=== PATIENT | male | born 1965 | race Caucasian/White ===

== ENCOUNTER → 2018-03-29 | Outpatient (CLI) | payer BC | END | disposition home or self-care (01) | LOC: PCVCIMAG 11:31 | DX: I73.9 Peripheral vascular disease, unspecified (principal); I77.1 Stricture of artery; R00.2 Palpitations; R06.09 Other forms of dyspnea; I10 Essential (primary) hypertension; R07.89 Other chest pain | CPT/HCPCS: 93325; 93351; 93978 ==

== ENCOUNTER → 2018-04-04 | Outpatient (CLI) | payer BC ==
[~2018-04-04] MED LIST: CLOPIDOGREL BISULFATE 75 MG TABLET ONE; DIAZEPAM 10 MG TABLET. ONE; HEPARIN SODIUM 5,000 UNIT/ML VIAL for PCVC. ONE; HEPARIN for ARTERIAL LINE 1,500 ML ONE; IODIXANOL 270 MG/ML 100 ML VIAL. ONE; IOHEXOL 350 MG/ML 100 ML VIAL. ONE; IOHEXOL 350 MG/ML 50 ML VIAL. ONE; IV NORMAL SALINE 1000ML BAG 1,000 ML ONE; LIDOCAINE 1%/EPI 1:100,000 20 ML VIAL. ONE; MIDAZOLAM HCL/PF 2 MG/2 ML VIAL. ONE; WATER FOR INJECTION,STERILE 10 ML IJ ONE; ceFAZolin SODIUM 1 GM VIAL ONE; fentaNYL PF VIAL 100 MCG/2 ML VIAL ONE; hydrALAZINE 20 MG/ML VIAL. ONE
--- NOTE | 2018-04-04 11:31 | PCVCINTER ---
EXAM: 1. AORTOGRAM AND BILATERAL LOWER EXTREMITY RUNOFF ANGIOGRAM 2. BILATERAL RENAL ANGIOGRAPHY 3. DISTAL AORTIC STENT PLACEMENT. 4. RIGHT COMMON ILIAC ARTERY STENT PLACEMENT. 5. LEFT COMMON ILIAC ARTERY STENT PLACEMENT. INDICATION: Peripheral arterial disease. Coronary artery disease. Lower extremity claudication and fatigue. Hypertension. Renal atherosclerosis. No prior catheter based angiographic study is available. A full diagnostic angiogram study is performed today and the decision to intervene is based on this diagnostic study. PROCEDURE: Procedure and risks of angiography intervention is appropriate including limb loss stroke and were discussed with the patient's family and consent obtained. The patient's left groin was prepped in the normal sterile fashion. IV conscious sedation was used throughout procedure with appropriate monitoring from 9:00 AM through 10:30 AM. Ultrasound was used to interrogate the left groin and showed the left common femoral artery to be patent. A permanent spot film was obtained. Under ultrasound guidance access into the left common femoral artery was obtained and a 5 Montenegrin sheath was placed. Through this a 5 Montenegrin flush catheter was placed into the abdominal aorta at the level of the renal arteries and AP aortogram was performed. Catheter was positioned at the aortic bifurcation and both oblique views of the pelvis were obtained. Catheter was positioned into the left external iliac artery and left leg runoff angiography was performed. Catheter was exchanged for a visceral catheter was placed into the right renal arteries and right renal angiograms obtained. Catheter was placed into the the left renal arteries and left renal angiograms were obtained. Under ultrasound guidance access into the right common femoral artery was obtained and a 6 Montenegrin sheath was placed. Catheter was advanced to the level of the right external iliac artery and right leg runoff angiography was obtained. Patient was given 3500 units of heparin. Stent placement across the areas of high-grade stenosis in the distal abdominal aorta was carried out with a Smart stents placed in a kissing-type fashion with subsequent dilatation to 7 and 8 mm diameter simultaneously. Stent placement across the areas of high-grade stenosis in the right common iliac artery was carried out with a 10 x 60 Smart control stent with subsequent dilatation to 8 mm. Stent placement across the areas of high-grade stenosis in the left common iliac artery was carried out with a 10 x 40 Smart control stent with subsequent dilatation to 7.0 mm. Catheters and wires removed. Dr. Diehl joined the procedure he performed coronary angiography. Please see his dictation for full details. Sheath was removed and hemostasis obtained using the FISH device. No immediate complications. FINDINGS: Aortogram: There is one right and one left renal artery. Moderate plaque distal aorta causing moderate stenosis. Pelvis: Moderate stenosis at the origin of the right common iliac artery. Mild/moderate stenosis origin left common iliac artery. Both internal iliac arteries are patent. Both external iliac arteries are patent. The right and left common femoral and profunda femoral arteries are patent. Right renal artery: Minimal plaque proximal vessel does not cause significant stenosis. Left renal artery: Minimal plaque proximal vessel does not cause significant stenosis. Right leg: Superficial femoral artery and popliteal artery are patent. Three-vessel runoff into the foot. Left leg: Superficial femoral artery and popliteal artery are patent. Three-vessel runoff into the foot. Distal aorta: Following procedure as above vessel is patent. Right common iliac artery: Following procedure as above vessel shows good patency. Left common iliac artery: Following procedure as above vessel shows good patency. IMPRESSION: Moderate distal abdominal aortic stenosis with moderate stenosis involving the proximal right and left common iliac arteries were treated as above with good patency restored. LOC:[id number]
--- NOTE | 2018-04-04 17:01 | PCVCINTER ---
APPROVED REPORT Study performed: 04/04/2018 09:33:01 Patient Details Patient Status: Out-Patient Room #: 2 The patient is a 52 year-old Male Event Personnel Eh Diehl MD, , Jake Garcia RT(R)(), Cruz Flores RT(R), Yesenia Woods RN Risk Factors Arterial HypertensionDysplipidemia (Type: 1), Last Creatanine 1Tobacco History (Current/Recent(w/in 1 year)) Procedure Narrative A 6 sheath was inserted into the right femoral artery. Coronary angiography was performed using coronary diagnostic catheters. The right coronary system was accessed and visualized with a JR4 catheter. The left coronary system was accessed and visualized with a JL4 catheter. The left ventricle was accessed and visualized with a Straight Pigtail catheter. Left ventriculogram was performed in CHAIDEZ projection. Closure device was deployed with a 6 Fr FISH. Hemostasis was obtained with manual pressure following sheath removal without any complications. The patient tolerated the procedure well and there were no complications associated with the procedure. There was no hematoma. Hemodynamics The aortic pressure is 146/34 mmHg with a mean of 84 mmHg. The left ventricular pressure is 115/5 mmHg with a mean of 27 mmHg. Conclusion #1 normal left ventricular size and systolic function EF 60% #2 left main moderate size with mild calcification giving rise to LAD and circumflex #3 LAD proximal calcification mid vessel lesion eccentric of 50-60% with preserved distal vessel to the apex. #4 circumflex OM nondominant moderate size with an eccentric 40-50% proximal lesion more focal #5 dominant right coronary artery also diffusely disease with proximal calcification mid vessel 50-60% long with diffuse distal disease Recommendations and plan: Continue aggressive risk factor modification. Follow post peripheral stent protocol with bilateral iliac stents placed per Dr. So. Aggressive statin therapy blood pressure control. Follow-up will be arranged
== END | disposition home or self-care (01) ==
LOC: PCVCINTER 15:06
PROVIDERS: ATTEND Internal Medicine Cardiovascular Disease
DX: I25.10 Atherosclerotic heart disease of native coronary artery without angina pectoris (principal); I70.213 Atherosclerosis of native arteries of extremities with intermittent claudication, bilateral legs; I70.1 Atherosclerosis of renal artery; I10 Essential (primary) hypertension; I70.0 Atherosclerosis of aorta
CPT/HCPCS: 36252; 37221; 37236; 75716; 76937; 93458; 99152; 99153; C1725; C1751; C1760; C1769; C1876; C1894; J0690; J1644; J2250; J3010; J3490; J7030; Q9967; J0360

== ENCOUNTER → 2018-04-10 | Outpatient (CLI) | payer BC ==
--- NOTE | 2018-04-10 11:30 | PCVCIMAG ---
EXAM: DUPLEX ULTRASOUND OF THE RIGHT GROIN INDICATION: Groin swelling and pain. FINDINGS: No pseudoaneurysm is present. The common femoral artery and vein are patent. No arteriovenous fistula is seen. IMPRESSION: Study is negative for pseudoaneurysm. LOC:[id number]
== END | disposition home or self-care (01) ==
LOC: PCVCIMAG 13:00
PROVIDERS: ATTEND Nuclear Medicine Nuclear Cardiology
DX: R10.31 Right lower quadrant pain (principal)
CPT/HCPCS: 93926

== ENCOUNTER → 2018-05-09 | Outpatient (CLI) | payer BC ==
--- NOTE | 2018-05-09 08:44 | PCVCIMAG ---
EXAM: AORTOILIAC DUPLEX INDICATION: Peripheral arterial disease FINDINGS: AORTA: Suprarenal aorta measures maximum diameter of 2.4 cm. There is not a fusiform infrarenal aortic aneurysm. The infrarenal aorta measures maximum diameter of 1.8 cm. No aortic stenosis. RIGHT COMMON ILIAC ARTERY: Maximum diameter is 1.1 cm. No significant stenosis. RIGHT EXTERNAL ILIAC ARTERY: No significant stenosis. LEFT COMMON ILIAC ARTERY: Maximum diameter is 1.1 cm. 70-80% stenosis proximal vessel. LEFT EXTERNAL ILIAC ARTERY: No significant stenosis. IMPRESSION: No abdominal aortic aneurysm. Previous right common iliac artery stent maintaining good patency. 70-80% stenosis proximal left common iliac artery. LOC:[id number]
== END | disposition home or self-care (01) ==
LOC: PCVCIMAG 08:21
PROVIDERS: ATTEND Nuclear Medicine Nuclear Cardiology
DX: I73.9 Peripheral vascular disease, unspecified (principal); M25.559 Pain in unspecified hip; F17.200 Nicotine dependence, unspecified, uncomplicated; I25.10 Atherosclerotic heart disease of native coronary artery without angina pectoris; I10 Essential (primary) hypertension; E78.1 Pure hyperglyceridemia; I70.8 Atherosclerosis of other arteries
CPT/HCPCS: 93978

== ENCOUNTER → 2018-05-16 | Outpatient (CLI) | payer BC ==
[~2018-05-16] MED LIST changes: -CLOPIDOGREL BISULFATE 75 MG TABLET ONE; -HEPARIN for ARTERIAL LINE 1,500 ML ONE; -IOHEXOL 350 MG/ML 100 ML VIAL. ONE; -IOHEXOL 350 MG/ML 50 ML VIAL. ONE; -hydrALAZINE 20 MG/ML VIAL. ONE
--- NOTE | 2018-05-16 12:57 | PCVCINTER ---
EXAM: 1. AORTOGRAM AND BILATERAL LOWER EXTREMITY RUNOFF ANGIOGRAM 2. BILATERAL RENAL ANGIOGRAPHY 3. DISTAL AORTIC STENT GRAFT PLACEMENT. 4. RIGHT COMMON ILIAC ARTERY STENT GRAFT PLACEMENT. 5. LEFT COMMON ILIAC ARTERY STENT GRAFT PLACEMENT. INDICATION: Peripheral arterial disease. Coronary artery disease. Nonhealing ulcer right lower extremity. Hypertension. Renal atherosclerosis. No prior catheter based angiographic study is available. A full diagnostic angiogram study is performed today and the decision to intervene is based on this diagnostic study. PROCEDURE: Procedure and risks of angiography intervention is appropriate including limb loss stroke and were discussed with the patient's family and consent obtained. The patient's left groin was prepped in the normal sterile fashion. IV conscious sedation was used throughout procedure with appropriate monitoring from 8:45 AM through 10:00 AM. Ultrasound was used to interrogate the left groin and showed the left common femoral artery to be patent. A permanent spot film was obtained. Under ultrasound guidance access into the left common femoral artery was obtained and a 5 English sheath was placed. Through this a 5 English flush catheter was placed into the abdominal aorta at the level of the renal arteries and AP aortogram was performed. Catheter was positioned at the aortic bifurcation and both oblique views of the pelvis were obtained. Catheter was positioned into the left external iliac artery and left leg runoff angiography was performed. Catheter was exchanged for a visceral catheter was placed into the right renal arteries and right renal angiograms obtained. Catheter was placed into the the left renal arteries and left renal angiograms were obtained. The right groin have been prepped and draped in the normal sterile fashion. Access under ultrasound guidance the right common femoral artery was obtained and a 7 English sheath was placed. Through this a catheter was advanced to the level of the right external iliac artery and right leg runoff angiography was obtained. Patient was given 4000 units of heparin. Stent placement across the areas of high-grade stenosis in the distal abdominal aorta was carried out with a VBX stent grafts placed in a kissing-type fashion with subsequent dilatation to 8.0 mm. Stent placement across the areas of high-grade stenosis in the right common iliac artery was carried out with a 8 x 59 VBX stent graft with subsequent dilatation to 8.0 mm. Stent placement across the areas of high-grade stenosis in the left common iliac artery was carried out with a 8 x 59 VBX stent graft with subsequent dilatation to 8.0 mm. Follow-up angiogram was performed. Catheters and wires removed. Sheath was removed and hemostasis obtained using the FISH device. No immediate complications. FINDINGS: Aortogram: There is one right and one left renal artery. Moderate plaque on the left distal aspect of the aorta with interval moderate restenosis of the distal aortic stent. Pelvis: Previous right common iliac artery maintaining satisfactory patency. Eccentric plaque origin left common iliac artery causing significant restenosis within prior stent. Both internal iliac arteries are patent. The right and left external iliac arteries are patent. The right and left common femoral and profunda femoral arteries are patent. Right renal artery: Mild plaque proximal vessel does not cause significant stenosis. Left renal artery: Minimal plaque proximal vessel does not cause significant stenosis. Right leg: Superficial femoral artery and popliteal arteries show good patency. Three-vessel runoff into the foot. Left leg: The superficial femoral artery and popliteal arteries show good patency. Three-vessel runoff into the foot. Distal aorta: Following procedure as above good position of the kissing stent graft in the distal aorta maintaining good patency. Right common iliac artery: Following procedure as above good position of the stent graft with good patency achieved. Left common iliac artery: Following procedure as above good position of the stent graft with good patency achieved. IMPRESSION: Interval early restenosis distal aorta along its left lateral aspect and high-grade stenosis within prior stent proximal left common iliac artery were treated as above with good patency restored. LOC:[id number]
== END | disposition home or self-care (01) ==
LOC: PCVCINTER 12:56
PROVIDERS: ATTEND Nuclear Medicine Nuclear Cardiology
DX: I70.238 Atherosclerosis of native arteries of right leg with ulceration of other part of lower leg (principal); L97.818 Non-pressure chronic ulcer of other part of right lower leg with other specified severity; I70.1 Atherosclerosis of renal artery; I70.292 Other atherosclerosis of native arteries of extremities, left leg; I10 Essential (primary) hypertension; I25.10 Atherosclerotic heart disease of native coronary artery without angina pectoris; I70.0 Atherosclerosis of aorta
CPT/HCPCS: 36252; 37221; 37236; 75716; 76937; 99152; 99153; C1713; C1725; C1751; C1769; C1874; C1894; J0690; J1644; J2250; J3010; J3490; J7030; Q9966

== ENCOUNTER → 2018-07-27 | Outpatient (CLI) | payer BC ==
--- NOTE | 2018-07-27 14:56 | PCVCIMAG ---
APPROVED REPORT Doppler Spectral Velocity Analysis PSV / EDVPSV / EDV ECA (R) 53 / 14 cm/sECA (L) 53 / 13 cm/s dICA (R) 60 / 27 cm/sdICA (L) 64 / 27 cm/s Eli (R) 50 / 22 cm/smICA (L) 56 / 24 cm/s pICA (R) 28 / 9 cm/spICA (L) 53 / 13 cm/s Bulb (R) 55 / 17 cm/sBulb (L) 53 / 17 cm/s dCCA (R) 78 / 18 cm/sdCCA (L) 71 / 24 cm/s mCCA (R) 91 / 21 cm/smCCA (L) 67 / 21 cm/s Vert (R) 39 / 16 cm/sVert (L) 39 / 12 cm/s ICA/CCA 0.77ICA/CCA 0.90 Findings The right carotid bulb has mild calcified plaque. The right proximal internal carotid artery shows no significant stenosis. The right common carotid artery shows no significant stenosis. The right external carotid artery shows no significant stenosis. The left carotid bulb has mild plaque. The left proximal internal carotid artery shows no significant stenosis. The left common carotid artery shows no significant stenosis. The left external carotid artery shows no significant stenosis. Conclusion 1. Mild bilateral plaquing without significant stenosis 2. Antegrade vertebral flow
--- NOTE | 2018-07-27 16:28 | PCVCIMAG ---
EXAM: NONINVASIVE ARTERIAL EXAMINATION OF BOTH LOWER EXTREMITIES INCLUDING PRE AND POST EXERCISE PRESSURE MEASUREMENTS AND DOPPLER WAVEFORMS INDICATION: Peripheral Arterial Disease. Leg pain. FINDINGS: Right Brachial: 142 mm Hg. Right Dorsalis Pedis: 167 mm Hg. Right Posterior Tibial: 173 mm Hg. Right RYAN = 1.17. Left Brachial: 148 mm Hg. Left Dorsalis Pedis: 159 mm Hg. Left Posterior Tibial: 159 mm Hg. Left RYAN = 1.07. Post Exercise: Left Brachial 146 mm Hg. Right Posterior Tibial: 148 mm Hg. Left Posterior Tibial: 147 mm Hg. Right RYAN = 1.01. Left RYAN = 1.01. IMPRESSION: No resting ischemia in the right lower extremity. No exercise induced ischemia in the right lower extremity. No resting ischemia in the left lower extremity. No exercise induced ischemia in the left lower extremity. LOC:[id number]
--- NOTE | 2018-07-27 16:32 | PCVCIMAG ---
EXAM: AORTOILIAC DUPLEX INDICATION: Peripheral arterial disease FINDINGS: AORTA: Suprarenal aorta measures maximum diameter of 2.9 cm. There is not a fusiform infrarenal aortic aneurysm. The infrarenal aorta measures maximum diameter of 1.9 cm. No aortic stenosis. RIGHT COMMON ILIAC ARTERY: Maximum diameter is 1.0 cm. No significant stenosis. RIGHT EXTERNAL ILIAC ARTERY: No significant stenosis. LEFT COMMON ILIAC ARTERY: Maximum diameter is 1.0 cm. No significant stenosis. LEFT EXTERNAL ILIAC ARTERY: No significant stenosis. IMPRESSION: No abdominal aortic aneurysm. No aortoiliac stenosis seen. Previous bilateral common iliac artery and distal aortic stents maintaining satisfactory patency. LOC:[id number]
== END | disposition home or self-care (01) ==
LOC: PCVCIMAG 13:10
PROVIDERS: ATTEND Nuclear Medicine Nuclear Cardiology
DX: I65.23 Occlusion and stenosis of bilateral carotid arteries (principal); I73.9 Peripheral vascular disease, unspecified; F17.200 Nicotine dependence, unspecified, uncomplicated; E78.1 Pure hyperglyceridemia; R09.89 Other specified symptoms and signs involving the circulatory and respiratory systems
CPT/HCPCS: 93880; 93923; 93978; 93924